=== PATIENT | female | born 1940 | race Caucasian/White ===

== ENCOUNTER → 2023-09-27 | Day surgery (SDC) | payer MEDICARE ==
[2023-09-19 10:37] LABS: BASOPHILS % 0.2 % (0.0-1.0); EOSINOPHILS # (AUTO) 0.1 (0.0-0.4); EOSINOPHILS % 0.7 % (0.0-6.0); HEMATOCRIT 38.9 % (34.2-44.1); HEMOGLOBIN 12.9 g/dL (12.0-16.0); LYMPHOCYTES # (AUTO) 1.3 (1.0-3.2); LYMPHOCYTES % 14.9 % (18.0-39.1); MEAN CORPUSCULAR HEMOGLOBIN 28.6 pg (28-32); MEAN CORPUSCULAR HGB CONC 33.2 g/dL (31-35); MEAN CORPUSCULAR VOLUME 86.3 fL (81-99); MONOCYTES # (AUTO) 0.6 (0.2-0.8); MONOCYTES % 7.6 % (4.4-11.3); NEUTROPHILS # (AUTO) 6.4 (2.1-6.9); NEUTROPHILS % 76.2 % (38.7-80.0); PLATELET COUNT 257 x10e3/uL (140-360); RED BLOOD COUNT 4.51 x10e6/uL (3.6-5.1); RED CELL DISTRIBUTION WIDTH 13.4 % (11.7-14.4)
[~2023-09-27] MED LIST: ALENDRONATE SOD70 MG PO; AREDS PO; ASPIRIN81 MG PO; CLORAZEPATE D3.75 MG PO; FENOFIBRATE134 MG PO; LACTATED RINGER'S 1,000 ML BAG ONE; LACTATED RINGER'S 1,000 ML ONE; LATANOPROST2.5 ML OP; LEVOTHYROXINE112 MCG PO; LIDOCAINE HCL 2% LOCAL INJ 5 ML SDV VIAL INJ ONE; MILK OF MA2400 MG/10 PO; MUCINEX600 MG PO; NAMENDA10 MG PO; NORVASC5 MG PO; OMEPRAZOLE40 MG PO; OXYBUTYNIN CHLOR5 MG PO; PANTOPRAZOLE SO40 MG PO; PHENERGAN25 MG/1 ML PO; PROPOFOL IV EMULSION 10 MG/ML 20 ML VIAL ONE; TYLENOL325 MG PO; VITAMIN B-650 MG PO
[2023-09-27] MEDS: LACTATED RINGER'S 1,000 ML BAG INJ ONE (08:44)
[2023-09-27 10:38] VITALS: TEMP 97.6
[2023-09-27 10:50] VITALS: BP 144/77; PULSE 85; RESP 16; O2SAT 99
== END | disposition home or self-care (01) ==
LOC: OR 06:30
PROVIDERS: ATTEND Internal Medicine Gastroenterology
DX: Z08 Encounter for follow-up examination after completed treatment for malignant neoplasm (principal); Z85.038 Personal history of other malignant neoplasm of large intestine; D12.7 Benign neoplasm of rectosigmoid junction; K52.9 Noninfective gastroenteritis and colitis, unspecified; K62.4 Stenosis of anus and rectum; Z98.0 Intestinal bypass and anastomosis status; Z78.9 Other specified health status; I10 Essential (primary) hypertension; Z01.810 Encounter for preprocedural cardiovascular examination; Z01.812 Encounter for preprocedural laboratory examination; Z79.82 Long term (current) use of aspirin; Z79.899 Other long term (current) drug therapy; Z68.26 Body mass index [BMI] 26.0-26.9, adult
CPT/HCPCS: 36415; 45380; 85025; 88305; 93005; J2001; J2704; J7121; 45378